=== PATIENT | female | born 1970 | race Caucasian/White ===

== ENCOUNTER 2023-09-29 23:34 | Emergency (ER) | payer OTHER ==
[~2023-09-29] VITALS: Ht 170.2 cm; Wt 70.3 kg
[2023-09-29 23:46] VITALS: BP 167/79; PULSE 82; RESP 16; TEMP 98.5; O2SAT 95
[2023-09-29 23:58] VITALS: O2SAT 98
[2023-09-30 07:30] VITALS: O2SAT 97
[2023-09-30 11:16] VITALS: BP 153/94; PULSE 70; RESP 14; TEMP 97.5; O2SAT 99
== END 2023-09-30 11:16 ==
LOC: MED 23:34
DX: K94.23 Gastrostomy malfunction (principal); I10 Essential (primary) hypertension; E03.9 Hypothyroidism, unspecified; E78.5 Hyperlipidemia, unspecified; Z86.73 Personal history of transient ischemic attack (TIA), and cerebral infarction without residual deficits
CPT/HCPCS: 43762; 74240; 99285; Q0092; Q9967